=== PATIENT | female | born 1995 | race Caucasian/White ===

== ENCOUNTER 2022-10-21 21:49 | Observation (INO) | payer OTHER ==
[2022-10-21] MEDS ORDERED: TYLENOL EXTRA STRENGTH 500 MG PO ONE (23:32)
[2022-10-21] MEDS ORDERED: TYLENOL EXTRA STRENGTH 500 MG ONE (23:34)
[2022-10-22 00:17] VITALS: BP 137/65; PULSE 83
[2022-10-22 00:29] VITALS: O2SAT 99
== END 2022-10-22 | disposition home or self-care (01) ==
LOC: OB 21:49 → UNDOADMOB 21:49 → UNDODISOB 10-22
PROVIDERS: ADMIT Obstetrics & Gynecology; ATTEND Obstetrics & Gynecology
DX: Z34.83 Encounter for supervision of other normal pregnancy, third trimester (principal); Z3A.31 31 weeks gestation of pregnancy
CPT/HCPCS: G0378; A9270-GY

== ENCOUNTER 2022-12-14 05:00 | Inpatient (IN) | payer OTHER ==
[~2022-12-14 05:00] MED LIST: Lactated Ringers 1,000 ML IV SCH
[2022-12-14 06:13] LABS: Hematocrit 33.2 % (35-47); Hemoglobin 11.2 g/dL (12.0-16.0); Mean Cell Volume 86.5 fL (78-100); Mean Corpuscular Hemoglobin 29.2 pg (26-32); Mean Corpuscular Hgb Concent. 33.7 g/dL (32-36); Mean Platelet Volume 10.2 fL (7.5-11.0); Platelet Count 153 x10^3/uL (150-450); Red Blood Count 3.84 x10^6/uL (4.1-5.4); White Blood Count 6.1 x10^3/uL (4.0-10.5)
[2022-12-14 06:30] LABS: INR 0.89 (0.8-3.0); PROTIME 9.8 SECONDS (9.4-12.5); PTT 26.3 SECONDS (25.1-36.5)
[2022-12-14 06:32] LABS: ADD URINE CULTURE? NO (NO); Appearance Clear (Clear); Bacteria None Seen /HPF (None Seen); Bilirubin Negative (Negative); Blood Negative (Negative); Epithelial Cells None Seen /HPF (None Seen); Glucose, Urine Negative (Negative); Hyaline Casts NONE SEEN /LPF (0-2); Ketones Negative (Negative); Leukocyte Esterase Negative (Negative); Nitrite Negative (Negative); Protein,Urine Dip Negative (Negative); RBC 0-2 /HPF (0-5); Specific Gravity 1.015 (1.005-1.030); WBC 0-2 /HPF (0-5)
[2022-12-14 06:34] LABS: Amphetamine,Urine NEGATIVE (NEGATIVE); Barbiturate,Urine NEGATIVE (NEGATIVE); Benzodiazepine,Urine NEGATIVE (NEGATIVE); Cocaine,Urine NEGATIVE (NEGATIVE); Methadone,Urine NEGATIVE (NEGATIVE); Opiate,Urine NEGATIVE (NEGATIVE); PCP,Urine NEGATIVE (NEGATIVE); THC,Urine NEGATIVE (NEGATIVE)
[2022-12-14 06:36] LABS: ABO TYPING A; RH TYPING POSITIVE
[2022-12-14 06:53] LABS: Antibody Screen NEGATIVE (NEGATIVE)
[2022-12-14] MEDS ORDERED: Reglan 10 MG/2 ML IV SCH (07:00)
[2022-12-14] MEDS ORDERED: Lactated Ringers 1,000 ML IV SCH (07:00)
[2022-12-14] MEDS ORDERED: SOD CITRATE-CITRIC ACID SOLN PO SCH (07:00)
[2022-12-14] MEDS ORDERED: CLINDAMYCIN-D5W 900 MG/50 ML*** 900 MG/50 ML BAG IV SCH (07:00)
[2022-12-14] MEDS ORDERED: Pepcid 20 MG VIAL IV SCH (07:00)
[2022-12-14] MEDS ORDERED: Pitocin 10 UNITS/ML ONE ×2 (08:00→09:05)
[2022-12-14] MEDS ORDERED: Astramorph-Pf 5 MG/10 ML ONE (08:01)
[2022-12-14] MEDS ORDERED: PHENYLEPHRINE HCL ONE (08:49)
[2022-12-14] MEDS ORDERED: Versed 2 MG/2 ML Injection ONE (08:51)
[2022-12-14] MEDS ORDERED: Marcaine 0.5%/Epinephrine 10 ML ONE (09:13)
[2022-12-14] MEDS ORDERED: HOLD NARCOTIC ANALGESICS AND SEDATIVES X24 HR MC PRN (10:00)
[2022-12-14] MEDS ORDERED: Zofran 4 MG/2 ML VIAL IV PRN (10:00)
[2022-12-14] MEDS ORDERED: Mylicon 80MG PO PRN (10:00)
[2022-12-14] MEDS ORDERED: MORPHINE SULFATE 2 MG INJ IV PRN (10:00)
[2022-12-14] MEDS ORDERED: CLARITIN 10 MG PO PRN (10:00)
[2022-12-14] MEDS ORDERED: LANSINOH 40 GM TOP PRN (10:00)
[2022-12-14] MEDS ORDERED: Narcan 0.4 MG/ML IV PRN (10:00)
[2022-12-14] MEDS ORDERED: Sodium Chloride 0.9% 10 ML FLUSH Syringe IJ PRN (10:00)
[2022-12-14] MEDS ORDERED: Dextrose 5%-Lr IV Solution 1000 ML 1,000 ML IV SCH (10:00)
[2022-12-14] MEDS ORDERED: PERCOCET TABLET 5/325MG PO PRN (10:00)
[2022-12-14] MEDS ORDERED: Nubain 10 MG/ML IV PRN (10:00)
[2022-12-14] MEDS ORDERED: BENADRYL 50 MG/ML IV PRN (10:00)
[2022-12-14] MEDS ORDERED: TYLENOL EXTRA STRENGTH 500 MG PO PRN (10:00)
[2022-12-14] MEDS ORDERED: DEMEROL 50 MG ONE (10:12)
[2022-12-14] MEDS ORDERED: Zofran 4 MG/2 ML VIAL ONE (10:24)
[2022-12-14 14:42] LABS: Appearance Clear (Clear); Bacteria None Seen /HPF (None Seen); Bilirubin Negative (Negative); Blood Negative (Negative); Epithelial Cells Rare /HPF (None Seen); Glucose, Urine Negative (Negative); Hyaline Casts NONE SEEN /LPF (0-2); Ketones 15 (Negative); Leukocyte Esterase Negative (Negative); Nitrite Negative (Negative); Protein,Urine Dip Negative (Negative); RBC 0-2 /HPF (0-5); Specific Gravity 1.025 (1.005-1.030); WBC 0-2 /HPF (0-5)
[2022-12-14] MEDS ORDERED: Adacel Vial IM ONE (16:00)
[2022-12-14] MEDS: CLINDAMYCIN-D5W 900 MG/50 ML*** 900 MG/50 ML BAG IV SCH (18:17)
[2022-12-14] MEDS: Docusate Sodium 100 MG PO SCH (22:23)
[2022-12-15] MEDS: CLINDAMYCIN-D5W 900 MG/50 ML*** 900 MG/50 ML BAG IV SCH (02:12)
[2022-12-15 06:20] LABS: Absolute Neutrophil Ct (ANC) 7.08 x10^3/uL (1.4-6.9); BASOPHIL % 0.3 % (0.0-0.4); Basophil (Absolute #) 0.03 x10^3/uL (0-0.4); Eosinophil % 0.5 % (0.00-5.0); Eosinophil (Absolute #) 0.04 x10^3/uL (0-0.5); Hemoglobin 11.1 g/dL (12.0-16.0); IMMATURE GRAN # 0.03 x10^3u/L (0.00-0.03); IMMATURE GRAN % 0.3 % (0.00-0.4); Lymphocyte (Absolute #) 0.96 x10^3/uL (1.0-4.6); Mean Cell Volume 87.5 fL (78-100); Mean Corpuscular Hemoglobin 29.4 pg (26-32); Mean Corpuscular Hgb Concent. 33.6 g/dL (32-36); Mean Platelet Volume 9.9 fL (7.5-11.0); Monocytes % 6.9 % (0.0-12.0); Platelet Count 156 x10^3/uL (150-450); Red Blood Count 3.77 x10^6/uL (4.1-5.4); Red Cell Distribution Width 15.4 % (11.5-14.0); White Blood Count 8.7 x10^3/uL (4.0-10.5)
[2022-12-15] MEDS ORDERED: ENOXAPARIN SODIUM SQ ONE (09:00)
[2022-12-15 09:11] LABS: HBsAg Screen Negative (Negative)
[2022-12-15] MEDS: Docusate Sodium 100 MG PO SCH (09:18)
[2022-12-15] MEDS ORDERED: MOTRIN 400 MG PO PRN (10:00)
[2022-12-15] MEDS ORDERED: ZOLOFT 50 MG TABLET PO SCH (10:00)
[2022-12-15] MEDS ORDERED: FERREX 150 PO SCH (10:00)
[2022-12-15] MEDS ORDERED: DEMEROL 50 MG IV PRN (10:00)
[2022-12-15] MEDS ORDERED: THERAGRAN MULTIVITAMIN PO SCH (10:00)
[2022-12-15] MEDS: NORCO 5/325 MG PO PRN ×2 (13:21→17:23)
--- NOTE | 2022-12-15 16:42 | PCM.DS ---
Discharge Summary Date of Admission: 12/14/22 05:00 Admitting Physician: TONY SANTO DO Consults: Consults on Case 12/14/22 05:00 Notify Physician OF ADMISSION 12/14/22 08:00 Notify Anesthesia Provider ROUTINE 12/14/22 10:00 Notify Anesthesia Provider PRN 12/14/22 10:28 Navigation ONCE Primary Care Provider: SYMONE MATHEW Allergies Allergies Penicillins Allergy (Severe, Verified 12/14/22 06:26) Tightness of Throat Hospital Summary - Hospital Course Hospital Course: pt admitted o december 14 for scheduled repeat csection and underwent procedure without complication and delivered live baby girl. pt did well postoperatively was able to ambulate and tolerate diet. pts baby was transferred to [place] today therefore pt desires to be discharged. pt had stable hgb level at 11 and was given rx for norco for pain management. all questions answered to her satisfaction. advised to fu next saturday for incision check. - Vitals & Intake/Output Vital Signs: Vital Signs Temperature 98.4 F 12/15/22 15:00 Pulse Rate 108 H 12/15/22 15:00 Respiratory Rate 18 12/15/22 15:00 Blood Pressure 121/56 12/15/22 15:00 O2 Sat by Pulse Oximetry 98 12/15/22 15:00 Intake & Output: Intake & Output 12/13/22 12/14/22 12/15/22 12/16/22 11:59 11:59 11:59 11:59 Intake Total 1620 Output Total 2350 Balance -730 Weight 129.274 kg - Lab Result Diagrams: 12/15/22 06:05 Lab Results-Last 24 Hrs: Lab Results-Last 24 Hours 12/14/22 12/15/22 Range/Units 06:01 06:05 WBC 8.7 (4.0-10.5) x10^3/uL RBC 3.77 L (4.1-5.4) x10^6/uL Hgb 11.1 L (12.0-16.0) g/dL Hct 33.0 L (35-47) % MCV 87.5 (78-100) fL MCH 29.4 (26-32) pg MCHC 33.6 (32-36) g/dL RDW 15.4 H (11.5-14.0) % Plt Count 156 (150-450) x10^3/uL MPV 9.9 (7.5-11.0) fL Gran % 81.0 H (36.0-66.0) % Immature Gran % (Auto) 0.3 (0.00-0.4) % Nucleat RBC Rel Count 0.0 (0.00-0.1) % Eos # (Auto) 0.04 (0-0.5) x10^3/uL Immature Gran # (Auto) 0.03 (0.00-0.03) x10^3u/L Absolute Lymphs (auto) 0.96 L (1.0-4.6) x10^3/uL Absolute Monos (auto) 0.60 (0.0-1.3) x10^3/uL Absolute Nucleated RBC 0.00 (0.00-0.01) x10^3u/L Lymphocytes % 11.0 L (24.0-44.0) % Monocytes % 6.9 (0.0-12.0) % Eosinophils % 0.5 (0.00-5.0) % Basophils % 0.3 (0.0-0.4) % Absolute Granulocytes 7.08 H (1.4-6.9) x10^3/uL Basophils # 0.03 (0-0.4) x10^3/uL Hep Bs Antigen Negative (Negative) - Procedures and Test Procedures and Tests throughout Hospitalization: Therapy Orders & Screens 12/14/22 09:16 Standby ROUTINE Comment: Diagnosis: TRISTAN Repeat C/S - Discharge Disposition: Home, Self-Care Condition: Stable Prescriptions: New Hydrocodone/Acetaminophen [Hydrocodone-Acetamin 5-325 mg] 1 tab PO Q6HPRN PRN #20 tablet MDD 4 PRN Reason: Pain No Action Sertraline HCl 50 mg [Zoloft 50 mg Tablet] 50 mg PO DAILY Vit No.179/Iron/Folic [ Tablet] 1 tab PO HS Follow up with: SYMONE MATHEW [Primary Care Provider] - TONY SANTO DO [ACTIVE STAFF] - 1 Week (should fu in office next saturday)
--- NOTE | 2022-12-15 16:43 | PCM.NOTE ---
Date and Time: 12/15/22 1642 Subjective Assessment: pod 1 sp csection pt resting in bed and doing well able to ambulate and tolerate diet vss afebrile abd; soft uterus firm lochia; mild a/p sp csection pod 1 doing well desires to be discharged today due to baby being transferred OBJECTIVE DATA Vital Signs: Vital Signs - 24 hr Temp Pulse Resp BP Pulse Ox 12/15/22 15:00 98.4 F 108 H 18 121/56 98 12/15/22 10:00 97 12/15/22 09:32 97.9 F 93 H 16 117/66 97 12/15/22 09:00 97 12/15/22 08:00 98 12/15/22 07:00 100 12/15/22 06:00 98.3 F 93 H 18 117/63 100 12/15/22 05:00 100 12/15/22 04:00 100 12/15/22 03:00 100 12/15/22 00:08 98.4 F 91 H 16 117/63 98 12/15/22 00:00 98 12/14/22 23:30 98 12/14/22 22:00 98 12/14/22 21:00 98 12/14/22 20:00 98.6 F 96 H 18 110/53 99 12/14/22 18:54 97 12/14/22 18:00 99 12/14/22 17:00 100 Pain Assessment - Last Documented Pain Intensity [Bilateral 1 Lower Distal] Pain Intensity 7 Pain Scale Used 0-10 Pain Scale Intake and Output: Intake & Output 12/13/22 12/14/22 12/15/22 12/16/22 11:59 11:59 11:59 11:59 Intake Total 1620 Output Total 2350 Balance -730 Weight 129.274 kg Lab Results: Lab Results-Last 24 Hours 12/14/22 12/15/22 Range/Units 06:01 06:05 WBC 8.7 (4.0-10.5) x10^3/uL RBC 3.77 L (4.1-5.4) x10^6/uL Hgb 11.1 L (12.0-16.0) g/dL Hct 33.0 L (35-47) % MCV 87.5 (78-100) fL MCH 29.4 (26-32) pg MCHC 33.6 (32-36) g/dL RDW 15.4 H (11.5-14.0) % Plt Count 156 (150-450) x10^3/uL MPV 9.9 (7.5-11.0) fL Gran % 81.0 H (36.0-66.0) % Immature Gran % (Auto) 0.3 (0.00-0.4) % Nucleat RBC Rel Count 0.0 (0.00-0.1) % Eos # (Auto) 0.04 (0-0.5) x10^3/uL Immature Gran # (Auto) 0.03 (0.00-0.03) x10^3u/L Absolute Lymphs (auto) 0.96 L (1.0-4.6) x10^3/uL Absolute Monos (auto) 0.60 (0.0-1.3) x10^3/uL Absolute Nucleated RBC 0.00 (0.00-0.01) x10^3u/L Lymphocytes % 11.0 L (24.0-44.0) % Monocytes % 6.9 (0.0-12.0) % Eosinophils % 0.5 (0.00-5.0) % Basophils % 0.3 (0.0-0.4) % Absolute Granulocytes 7.08 H (1.4-6.9) x10^3/uL Basophils # 0.03 (0-0.4) x10^3/uL Hep Bs Antigen Negative (Negative) Assessment/Plan (1) S/P repeat low transverse Current Visit: Yes Status: Acute Code(s): Z98.891 - HISTORY OF UTERINE SCAR FROM PREVIOUS SURGERY
[2022-12-15 18:58] VITALS: BP 124/78; PULSE 119; O2SAT 96
--- NOTE | 2022-12-17 11:29 | OP ---
SURGERY DATE/TIME: 12/14/2022 0821 PREOPERATIVE DIAGNOSIS: Intrauterine at 39 weeks gestation with previous section for repeat section. POSTOPERATIVE DIAGNOSIS: Intrauterine at 39 weeks gestation with previous section for repeat section with lower uterine segment with anterior placenta. PROCEDURES: Repeat section, low flap transverse uterine incision, Pfannenstiel skin incision. SURGEON: Clint Roa D.O. CLAM SHUCKING MACHINE TENDER: Li Thomason and Brittany Stewart, surgical nurse. ANESTHESIA: Spinal. ESTIMATED BLOOD LOSS: 554 cc. COMPLICATIONS: None. INDICATIONS: The risks, benefits, indications and alternatives of the procedure were reviewed with the patient prior to procedure. The patient understood the risk of infection, bleeding, bowel injury, bladder injury, ureteral perforation, pelvic infection, thromboembolic disorder associated with this procedure and desires to have this surgery as a possible means to alleviate her current medical condition. DESCRIPTION OF PROCEDURE AND FINDINGS: At this point the patient is taken to the operating room where her spinal anesthesia was found to adequate. She was then prepared and draped in normal sterile fashion in the dorsal supine position with a leftward tilt. A Pfannenstiel skin incision is made with a scalpel and carried through to the underlying layer of the fascia with a Bovie. The fascia was then incised in the midline and the incision extended laterally with Mitchell scissors. The superior aspect of the fascial incision were then grasped Davin clamps elevated and the underlying rectus muscles dissected off bluntly. Attention is then turned to the inferior aspect of this incision which in similar fashion was grasped, tented up with Davin clamps and the rectus muscles dissected off bluntly. The rectus muscles were then in the midline and the peritoneum identified, tented up and entered sharply with Metzenbaum scissors. The peritoneal incision was then extended superiorly and inferiorly with good visualization of the bladder. The bladder blade was then inserted and the vesicouterine peritoneum identified, grasped with pickups and entered sharply with Metzenbaum scissors. This incision was then extended laterally and bladder flap created digitally. The bladder blade was then reinserted in the lower uterine segment and excised in transverse fashion with a scalpel. The uterine incision was then extended laterally with bandage scissors. The bladder blade was then removed and the placenta was noted to be anteriorly however entrance through the placenta was obtained and the infants head was delivered atraumatically. The nose and mouth were suctioned with DeLee suction and the cord clamped and cut. The was then handed off to the awaiting nurses. The lower uterine segment appeared to be thin at the time of entry. At this point the placenta was then removed and the uterus exteriorized and cleared of all clots and debris. The uterine incision was repaired with 1-0 chromic in running locked fashion. A second layer of the same suture was used to obtain excellent hemostasis. At this point the uterus is then returned to the abdomen. The gutters were cleared of all clots and the peritoneal muscles were closed in interrupted fashion using 2-0 chromic suture. The fascia was re-approximated with 0 Vicryl in running fashion. The subcutaneous layer was closed with 3-0 Vicryl suture. The skin was closed with absorbable halima called INSORB. The patient tolerated the procedure well. Sponge, lap, needle and instrument counts were correct x2. The patient was then taken to the recovery room in stable condition. The patient delivered a live baby girl at 0957 without complication.
== END 2022-12-15 19:06 | disposition home or self-care (01) | DRG 788 ==
LOC: OBSVTOIN 05:00 → OB 05:00
PROVIDERS: ADMIT Obstetrics & Gynecology; ATTEND Obstetrics & Gynecology
PROC: 10D00Z1 Extraction of Products of Conception, Low, Open Approach (ICD-10-PCS; principal; 2022-12-14)
DX: O34.211 Maternal care for low transverse scar from previous cesarean delivery (principal); Z3A.39 39 weeks gestation of pregnancy; Z37.0 Single live birth; Z20.828 Contact with and (suspected) exposure to other viral communicable diseases
CPT/HCPCS: 36415; 59426; 64488; 76937; 80307; 81001; 81002; 85025; 85027; 85610; 85730; 86850; 86900; 86901; 87086; 87340; 90715; 94799; 96372; J1200; J1650; J2175; J2250; J2274; J2370; J2405; J2590; L0625; A9270-GY

== ENCOUNTER 2023-05-14 18:37 | Emergency (ER) | payer OTHER ==
--- NOTE | 2023-05-14 19:04 | ERPHSYRPT ---
- History of Present Illness Time Seen by Provider: 05/14/23 18:58 Source: patient Exam Limitations: no limitations Physician History: Patient 27-year-old female presents to our ED for evaluation of pelvic pain. Patient states that she has been experiencing pelvic pain since January 31 when her IUD was placed. Patient made her CURATOR OF EDUCATION doctor aware and is currently scheduled to follow-up with him regarding this discomfort that has been ongoing since January 31. Patient states now however she feels a pressure sensation in addition to the pain that she has been experiencing since the IUD was placed. No vaginal discharge. No trauma. No fever. No urinary symptomology. Symptoms are mild to moderate in intensity. No specific worsening improving factors. No associated symptomology otherwise. Patient is currently 5 months . Patient otherwise feels well. She voices no other complaints or concerns at this time. Portions of this note were created with voice recognition technology. There may be grammatical, spelling, punctuation or sound alike errors Timing/Duration: day(s) (2 days) Severity: moderate Modifying Factors: Improves With: nothing Associated Symptoms: denies symptoms Allergies/Adverse Reactions: Penicillins Allergy (Severe, Verified 05/14/23 18:46) Tightness of Throat Home Medications: No Reportable Medications [No Reported Medications] 05/14/23 [History] Travel Risk - Vaccine Status Have you recieved a Covid-19 vaccination: Yes Non Destructive Evaluation Manager: Fifteen Reasons - Review of Systems Constitutional: No Symptoms, No Fever, No Chills Eyes: No Symptoms Ears, Nose, & Throat: No Symptoms Respiratory: No Symptoms, No Cough, No Dyspnea Cardiac: No Symptoms, No Chest Pain, No Edema, No Syncope Abdominal/Gastrointestinal: No Symptoms, No Abdominal Pain, No Nausea, No Vomiting, No Diarrhea Genitourinary Symptoms: No Symptoms, No Dysuria Musculoskeletal: No Symptoms, No Back Pain, No Neck Pain Skin: No Symptoms, No Rash Neurological: No Symptoms, No Dizziness, No Focal Weakness, No Sensory Changes Psychological: No Symptoms Endocrine: No Symptoms Hematologic/Lymphatic: No Symptoms Immunological/Allergic: No Symptoms All Other Systems: Reviewed and Negative - Past Medical History Pertinent Past Medical History: Yes Neurological History: No Pertinent History ENT History: No Pertinent History Cardiac History: No Pertinent History Respiratory History: No Pertinent History Endocrine Medical History: No Pertinent History Musculoskeletal History: Fractures GI Medical History: No Pertinent History History: No Pertinent History Psycho-Social History: Anxiety, Depression Female Reproductive Disorders: No Pertinent History - Past Surgical History Past Surgical History: Yes Neuro Surgical History: No Pertinent History Cardiac: No Pertinent History Respiratory: No Pertinent History Gastrointestinal: Cholecystectomy Genitourinary: No Pertinent History Musculoskeletal: No Pertinent History Female Surgical History: Dilation & Curettage, Section Other Surgical History: Primary c/s 2019 - Social History Smoking Status: Never smoker Exposure to second hand smoke: No Drug Use: none - Nursing Vital Signs Nursing Vital Signs: Initial Vital Signs Temperature 98.2 F 05/14/23 18:37 Pulse Rate 102 H 05/14/23 18:37 Respiratory Rate 24 05/14/23 18:37 Blood Pressure 142/89 05/14/23 18:37 O2 Sat by Pulse Oximetry 98 05/14/23 18:37 Pain Scale Pain Intensity 4 - Physical Exam General Appearance: no apparent distress, alert Eye Exam: PERRL/EOMI, eyes nml inspection Ears, Nose, Throat Exam: normal ENT inspection, TMs normal, pharynx normal, moist mucous membranes Neck Exam: normal inspection, non-tender, supple, full range of motion Respiratory Exam: normal breath sounds, lungs clear, airway intact, No respiratory distress Cardiovascular Exam: regular rate/rhythm, normal heart sounds, normal peripheral pulses Gastrointestinal/Abdomen Exam: soft, normal bowel sounds, No tenderness, No mass Pelvic Exam: normal external exam, No adnexal tenderness, No adnexal mass, No cervical motion tenderness, No vaginal bleeding, No vaginal discharge Back Exam: normal inspection, normal range of motion, No CVA tenderness, No vertebral tenderness Extremity Exam: normal inspection, normal range of motion, pelvis stable Neurologic Exam: alert, oriented x 3, cooperative, normal mood/affect, nml cerebellar function, nml station & gait, sensation nml, No motor deficits Skin Exam: normal color, warm, dry, No rash Lymphatic Exam: No adenopathy SpO2 Interpretation: normal SpO2: 98 O2 Delivery: Room Air - Course Nursing assessment & vital signs reviewed: Yes Ordered Tests: Active Orders 24 hr Category Date Time Status IV Insertion STAT Care 05/14/23 18:55 Active CBC W DIFF Stat Lab 05/14/23 19:25 Completed CMP Stat Lab 05/14/23 19:25 Completed HCG QUALITATIVE, URINE Stat Lab 05/14/23 19:25 Completed UA W/RFX UR CULTURE Stat Lab 05/14/23 19:25 Completed Lab/Rad Data: Laboratory Result Diagrams 05/14/23 19:25 05/14/23 19:25 Laboratory Results 05/14/23 05/14/23 05/14/23 Range/Units 20:00 19:25 19:25 WBC (4.0-10.5) x10^3/uL RBC (4.1-5.4) x10^6/uL Hgb (12.0-16.0) g/dL Hct (35-47) % MCV (78-100) fL MCH (26-32) pg MCHC (32-36) g/dL RDW (11.5-14.0) % Plt Count (150-450) x10^3/uL MPV (7.5-11.0) fL Gran % (36.0-66.0) % Immature Gran % (Auto) (0.00-0.4) % Nucleat RBC Rel Count (0.00-0.1) % Eos # (Auto) (0-0.5) x10^3/uL Immature Gran # (Auto) (0.00-0.03) x10^3u/L Absolute Lymphs (auto) (1.0-4.6) x10^3/uL Absolute Monos (auto) (0.0-1.3) x10^3/uL Absolute Nucleated RBC (0.00-0.01) x10^3u/L Lymphocytes % (24.0-44.0) % Monocytes % (0.0-12.0) % Eosinophils % (0.00-5.0) % Basophils % (0.0-0.4) % Absolute Granulocytes (1.4-6.9) x10^3/uL Basophils # (0-0.4) x10^3/uL Sodium (137-145) mmol/L Potassium (3.5-5.1) mmol/L Chloride (98-107) mmol/L Carbon Dioxide (22-30) mmol/L Anion Gap (5-15) MEQ/L BUN (7-17) mg/dL Creatinine (0.52-1.04) mg/dL Estimated GFR ML/MIN Glucose (74-106) mg/dL Calcium (8.4-10.2) mg/dL Total Bilirubin (0.2-1.3) mg/dL AST (14-36) U/L ALT (0-35) U/L Alkaline Phosphatase (38-126) U/L Serum Total Protein (6.3-8.2) g/dL Albumin (3.5-5.0) g/dL Urine Color Yellow (Yellow) Urine Appearance Clear (Clear) Urine pH 7.5 (4.6-8.0) Ur Specific [place] 1.015 (1.005-1.030) Urine Protein Negative (Negative) Urine Glucose (UA) Negative (Negative) mg/dL Urine Ketones Negative (Negative) Urine Blood Negative (Negative) Urine Nitrite Negative (Negative) Urine Bilirubin Negative (Negative) Urine Urobilinogen 0.2 (0.2) mg/dL Ur Leukocyte Esterase Negative (Negative) U Hyaline Cast (Auto) NONE SEEN (0-2) /LPF Urine Microscopic RBC 0-2 (0-5) /HPF Urine Microscopic WBC 0-2 (0-5) /HPF Ur Epithelial Cells None Seen (None Seen) /HPF Urine Bacteria None Seen (None Seen) /HPF Urine Culture Reflexed NO (NO) Urine HCG, Qual NEGATIVE (NEGATIVE) Vaginal [place] NOT DETECTED (NEGATIVE) Alice species NOT DETECTED (NEGATIVE) Chlamydia DNA Probe (NEGATIVE) N.gonorrhoeae DNA Probe (NEGATIVE) T. vaginalis (PCR) NOT DETECTED (NEGATIVE) Bact Vaginosis (PCR) NEGATIVE (NEGATIVE) 05/14/23 05/14/23 05/14/23 Range/Units 19:25 19:25 18:37 WBC 6.3 (4.0-10.5) x10^3/uL RBC 4.51 (4.1-5.4) x10^6/uL Hgb 12.4 (12.0-16.0) g/dL Hct 37.3 (35-47) % MCV 82.7 (78-100) fL MCH 27.5 (26-32) pg MCHC 33.2 (32-36) g/dL RDW 13.5 (11.5-14.0) % Plt Count 206 (150-450) x10^3/uL MPV 9.1 (7.5-11.0) fL Gran % 68.3 H (36.0-66.0) % Immature Gran % (Auto) 0.3 (0.00-0.4) % Nucleat RBC Rel Count 0.0 (0.00-0.1) % Eos # (Auto) 0.09 (0-0.5) x10^3/uL Immature Gran # (Auto) 0.02 (0.00-0.03) x10^3u/L Absolute Lymphs (auto) 1.51 (1.0-4.6) x10^3/uL Absolute Monos (auto) 0.34 (0.0-1.3) x10^3/uL Absolute Nucleated RBC 0.00 (0.00-0.01) x10^3u/L Lymphocytes % 24.1 (24.0-44.0) % Monocytes % 5.4 (0.0-12.0) % Eosinophils % 1.4 (0.00-5.0) % Basophils % 0.5 (0.0-0.4) % Absolute Granulocytes 4.28 (1.4-6.9) x10^3/uL Basophils # 0.03 (0-0.4) x10^3/uL Sodium 140 (137-145) mmol/L Potassium 3.6 (3.5-5.1) mmol/L Chloride 105 (98-107) mmol/L Carbon Dioxide 25 (22-30) mmol/L Anion Gap 13.6 (5-15) MEQ/L BUN 8 (7-17) mg/dL Creatinine 0.56 (0.52-1.04) mg/dL Estimated GFR > 60.0 ML/MIN Glucose 97 (74-106) mg/dL Calcium 9.1 (8.4-10.2) mg/dL Total Bilirubin 0.40 (0.2-1.3) mg/dL AST 22 (14-36) U/L ALT 18 (0-35) U/L Alkaline Phosphatase 57 (38-126) U/L Serum Total Protein 7.5 (6.3-8.2) g/dL Albumin 4.3 (3.5-5.0) g/dL Urine Color (Yellow) Urine Appearance (Clear) Urine pH (4.6-8.0) Ur Specific [place] (1.005-1.030) Urine Protein (Negative) Urine Glucose (UA) (Negative) mg/dL Urine Ketones (Negative) Urine Blood (Negative) Urine Nitrite (Negative) Urine Bilirubin (Negative) Urine Urobilinogen (0.2) mg/dL Ur Leukocyte Esterase (Negative) U Hyaline Cast (Auto) (0-2) /LPF Urine Microscopic RBC (0-5) /HPF Urine Microscopic WBC (0-5) /HPF Ur Epithelial Cells (None Seen) /HPF Urine Bacteria (None Seen) /HPF Urine Culture Reflexed (NO) Urine HCG, Qual (NEGATIVE) Vaginal [place] (NEGATIVE) Alice species (NEGATIVE) Chlamydia DNA Probe NOT DETECTED (NEGATIVE) N.gonorrhoeae DNA Probe NOT DETECTED (NEGATIVE) T. vaginalis (PCR) (NEGATIVE) Bact Vaginosis (PCR) (NEGATIVE) - Progress Progress: improved Progress Note: Patient is a 27-year-old female presents to our ED for evaluation of pelvic pressure. Physical exam essentially nonremarkable. Pelvic exam was negative. CBC CMP ordered. No significant findings observed. GC chlamydia negative. hCG negative. Urinalysis negative. Vaginal panel negative. Wet prep negative as well. Ultrasound is currently not in-house. I spoke to Dr. Roa patient's CURATOR OF EDUCATION physician who agreed that there is no need to call in ultrasound at this time. Dr. Roa advised that patient call him in the morning for follow-up appointment. Patient states that she has been having some pelvic discomfort since the placement of her IUD on January 31. Patient believes that her current symptomology is related to her IUD but as of now no evidence that this is the case. Complexity of problems addressed is moderate acute complicated No critical care time Complex of data reviewed and analyzed is extensive. Labs ordered reviewed and analyzed. Clinical correlation made between findings and history and physical examination. Management discussed with patient's CURATOR OF EDUCATION physician who agrees with plan of care/disposition. Risk complication and or risk of morbidity/mortality of patient management is low. No prescriptions prescribed. Vital stable. Discharge diagnosis is pelvic pain not otherwise specified. Time spent to discharge patient is approximately 15 minutes. Plan of care establi shed for shared decision making. No social determinants of health present to impede follow-up. Patient agrees to call her CURATOR OF EDUCATION physician in the morning for follow-up appointment. She voices no other complaints concerns at this time. Portions of this note were created with voice recognition technology. There may be grammatical, spelling, punctuation or sound alike errors 05/14/23 21:20 Discussed with DrStephany: Estefania Counseled pt/family regarding: lab results, diagnosis, need for follow-up - Departure Departure Disposition: Home Clinical Impression: Pelvic pain Condition: Stable Critical Care Time: No Referrals: HERNAN WHYTE MD [Primary Care Provider] - Follow up/PCP as directed Additional Instructions: Discharge/Care Plan ROCAEL SHORT was seen on 05/14/23 in the Emergency Room. The patient was counseled regarding Diagnosis,Lab results, Imaging studies, need for follow up and when to return to the Emergency Room. Prescriptions given: Discharge Note I have spoken with the patient and/or caregivers. I have explained the patient's condition, diagnosis and treatment plan based on the information available to me at this time. I have answered the patient's and/or caregiver's questions and addressed any concerns. The patient and/or caregivers have as good understanding of the patient's diagnosis, condition and treatment plan as can be expected at this point. The vital signs have been stable. The patient's condition is stable and appropriate for discharge from the emergency department. The patient will pursue further outpatient evaluation with the primary care physician or other designated or consulting physician as outlined in the discharge instructions. The patient and/or caregivers are agreeable to this plan of care and follow-up instructions have been explained in detail. The patient and/or caregivers have received these instruction. The patient/and or caregivers are aware that any significant change in condition or worsening of symptoms should prompt an immediate return to this or the closest emergency department or call 911.
[2023-05-14 19:15] VITALS: RESP 24; TEMP 98.2
[2023-05-14 19:33] LABS: Absolute Neutrophil Ct (ANC) 4.28 x10^3/uL (1.4-6.9); BASOPHIL % 0.5 % (0.0-0.4); Basophil (Absolute #) 0.03 x10^3/uL (0-0.4); Eosinophil % 1.4 % (0.00-5.0); Eosinophil (Absolute #) 0.09 x10^3/uL (0-0.5); Hematocrit 37.3 % (35-47); Hemoglobin 12.4 g/dL (12.0-16.0); IMMATURE GRAN # 0.02 x10^3u/L (0.00-0.03); IMMATURE GRAN % 0.3 % (0.00-0.4); Lymphocyte (Absolute #) 1.51 x10^3/uL (1.0-4.6); Lymphocytes % 24.1 % (24.0-44.0); Mean Cell Volume 82.7 fL (78-100); Mean Corpuscular Hemoglobin 27.5 pg (26-32); Mean Corpuscular Hgb Concent. 33.2 g/dL (32-36); Mean Platelet Volume 9.1 fL (7.5-11.0); Monocyte (Absolute #) 0.34 x10^3/uL (0.0-1.3); Monocytes % 5.4 % (0.0-12.0); Neutrophil % 68.3 % (36.0-66.0); Platelet Count 206 x10^3/uL (150-450); Red Blood Count 4.51 x10^6/uL (4.1-5.4); Red Cell Distribution Width 13.5 % (11.5-14.0); White Blood Count 6.3 x10^3/uL (4.0-10.5)
[2023-05-14 19:39] LABS: HCG URINE TEST NEGATIVE (NEGATIVE)
[2023-05-14 19:43] LABS: Appearance Clear (Clear); Bacteria None Seen /HPF (None Seen); Bilirubin Negative (Negative); Blood Negative (Negative); Epithelial Cells None Seen /HPF (None Seen); Glucose, Urine Negative (Negative); Hyaline Casts NONE SEEN /LPF (0-2); Ketones Negative (Negative); Leukocyte Esterase Negative (Negative); Nitrite Negative (Negative); Ph 7.5 (4.6-8.0); Protein,Urine Dip Negative (Negative); RBC 0-2 /HPF (0-5); Specific Gravity 1.015 (1.005-1.030); Urobilinogen 0.2 mg/dL (0.2); WBC 0-2 /HPF (0-5)
[2023-05-14 19:45] LABS: ALBUMIN 4.3 g/dL (3.5-5.0); ALKALINE PHOSPHATASE 57 U/L (38-126); ANION GAP 13.6 MEQ/L (5-15); BLOOD UREA NITROGEN 8 mg/dL (7-17); CHLORIDE 105 mmol/L (98-107); Calcium 9.1 mg/dL (8.4-10.2); Carbon Dioxide 25 mmol/L (22-30); Creatinine 1 0.56 mg/dL (0.52-1.04); EST GLOMERULAR FILTRATION RATE > 60.0 ML/MIN; Glucose 97 mg/dL (74-106); Potassium 3.6 mmol/L (3.5-5.1); SGOT/AST 22 U/L (14-36); SGPT/ALT 18 U/L (0-35); SODIUM 140 mmol/L (137-145); Total Protein 7.5 g/dL (6.3-8.2)
[2023-05-14 19:46] LABS: ADD URINE CULTURE? NO (NO)
[2023-05-14 20:34] LABS: Candida Group NOT DETECTED (NEGATIVE)
[2023-05-14 21:02] VITALS: BP 133/84; PULSE 92
[2023-05-14 21:04] LABS: CHLAMYDIA DNA NOT DETECTED (NEGATIVE); GC DNA Probe NOT DETECTED (NEGATIVE)
[2023-05-14 21:19] VITALS: O2SAT 98
== END 2023-05-14 21:30 | disposition home or self-care (01) ==
LOC: ED 18:37
DX: R10.2 Pelvic and perineal pain (principal)
CPT/HCPCS: 36000; 36415; 80053; 81001; 81025; 85025; 87481; 87491; 87591; 87661; 87801; 99283

== ENCOUNTER 2024-06-10 17:41 | Emergency (ER) | payer OTHER ==
--- NOTE | 2024-06-10 17:45 | ERPHSYRPT ---
- History of Present Illness Source: patient Exam Limitations: no limitations Hx Tetanus, Diphtheria Vaccination/Date Given: Yes Hx Influenza Vaccination/Date Given: No Hx Pneumococcal Vaccination/Date Given: No <JIM MCELROY - Last Filed: 06/10/24 17:45> - History of Present Illness Method of Injury: fell, twisted Occurred: just prior to arrival Quality: constant Severity of Pain-Max: moderate Severity of Pain-Current: mild Lower Extremities Pain: knee: right Modifying Factors: Improves With: movement (Bearing) <RICK PETERSEN - Last Filed: 06/10/24 20:19> - History of Present Illness Time Seen by Provider: 06/10/24 17:45 Physician History: 28-year-old female presents to emergency department for evaluation of pain to the right knee. Patient states she was at home in her yard when she stepped into a hole and fell over. Injury occurred today just prior to arrival. Patient describes pain at the anterior aspect of her right knee. Pain reproduced with palpation. Pain also worse with ambulation/weightbearing. No other injuries reported. No BHT or LOC. No neck pain. Cervical spine cleared clinically. Pain described as an ache that is localized however patient states pain is minimal and she declined pain medication. Patient reports that she felt a click sensation at the time of the injury. No other complaints voiced. Portions of this note were created with voice recognition technology. There may be grammatical, spelling, punctuation or sound alike errors (RICK PETERSEN) Allergies/Adverse Reactions: Penicillins Allergy (Severe, Verified 06/10/24 18:32) Tightness of Throat Home Medications: No Reportable Medications [No Reported Medications] 05/14/23 [History] - Review of Systems Constitutional: No Symptoms, No Fever, No Chills Eyes: No Symptoms Ears, Nose, & Throat: No Symptoms Respiratory: No Symptoms, No Cough, No Dyspnea Cardiac: No Symptoms, No Chest Pain, No Edema, No Syncope Abdominal/Gastrointestinal: No Symptoms, No Abdominal Pain, No Nausea, No Vomiting, No Diarrhea Genitourinary Symptoms: No Symptoms, No Dysuria Musculoskeletal: No Symptoms, No Back Pain, No Neck Pain Skin: No Symptoms, No Rash Neurological: No Symptoms, No Dizziness, No Focal Weakness, No Sensory Changes Psychological: No Symptoms Endocrine: No Symptoms Hematologic/Lymphatic: No Symptoms Immunological/Allergic: No Symptoms All Other Systems: Reviewed and Negative <FRANKRICK - Last Filed: 06/10/24 20:19> - Past Medical History Pertinent Past Medical History: Yes Neurological History: No Pertinent History ENT History: No Pertinent History Cardiac History: No Pertinent History Respiratory History: No Pertinent History Endocrine Medical History: No Pertinent History Musculoskeletal History: Fractures GI Medical History: Gallbladder Disease History: No Pertinent History Psycho-Social History: Anxiety, Depression Female Reproductive Disorders: No Pertinent History Other Medical History: IUD - Past Surgical History Past Surgical History: Yes Neuro Surgical History: No Pertinent History Cardiac: No Pertinent History Respiratory: No Pertinent History Gastrointestinal: Cholecystectomy Genitourinary: No Pertinent History Musculoskeletal: No Pertinent History Female Surgical History: Dilation & Curettage, Section Other Surgical History: Primary c/s 2018 and 2022 - Social History Smoking Status: Never smoker Exposure to second hand smoke: Yes Drug Use: none Patient Lives Alone: No <JIM MCELROY - Last Filed: 06/10/24 17:45> - Physical Exam General Appearance: alert Eyes, Ears, Nose, Throat Exam: moist mucous membranes Neck Exam: non-tender, supple Cardiovascular/Respiratory Exam: chest non-tender, regular rate/rhythm, no respiratory distress Gastrointestinal/Abdominal Exam: non-tender Back Exam: normal inspection, No vertebral tenderness Hips Exam: bilateral: non-tender, normal inspection, normal range of motion, no evidence of injury Legs Exam: bilateral leg: non-tender, normal inspection, normal range of motion, no evidence of injury Knees Exam: right knee: pain, soft tissue tenderness (Soft tissue tenderness anterior knee over the patellar tendon. Extensor mechanism intact.), left knee: non-tender, normal inspection, normal range of motion, no evidence of injury Ankle Exam: bilateral ankle: non-tender, normal inspection, normal range of motion, no evidence of injury Foot Exam: bilateral foot: non-tender, normal inspection, normal range of motion, no evidence of injury Neuro/Tendon Exam: normal sensation, normal motor functions Mental Status Exam: alert, oriented x 3, cooperative Skin Exam: normal color, warm, dry SpO2: 96 O2 Delivery: Room Air <RICK PETERSEN - Last Filed: 06/10/24 20:19> - Nursing Vital Signs Nursing Vital Signs: Initial Vital Signs Temperature 97.0 F 06/10/24 18:37 Pulse Rate 95 H 06/10/24 18:37 Respiratory Rate 20 06/10/24 18:37 Blood Pressure 130/90 06/10/24 18:37 O2 Sat by Pulse Oximetry 96 06/10/24 18:37 Pain Scale Pain Intensity 4 - Course Nursing assessment & vital signs reviewed: Yes - Radiology Exams Knee X-ray Interpretation: Interpreted by me (No fracture or dislocation. No acute findings) <RICK PETERSEN - Last Filed: 06/10/24 20:19> Ordered Tests: Active Orders 24 hr Category Date Time Status KNEE (3 VIEWS) Stat Exams 06/10/24 18:31 Taken - Progress Progress: improved Counseled pt/family regarding: diagnosis, need for follow-up, rad results <RICK PETERSEN - Last Filed: 06/10/24 20:19> - Progress Progress Note: 27-year-old female presents to emergency department for evaluation of of anterior knee pain after stepping into a hole. Physical exam reveals a superficial abrasion to the knee. The involved EXTR neurovascular tact distally compartments are soft cap refill less than 2 seconds. Extensor mechanism intact. All knee ligaments are stable. Patient declined pain medication. Patient however received bilateral axillary crutches and an Santos wrap. Patient received a referral to orthopedic clinic for Tuesday 06/12. Patient otherwise feels well. She states he is ready for discharge and voices no other complaints or concerns at this time. Portions of this note were created with voice recognition technology. There may be grammatical, spelling, punctuation or sound alike errors Complexity of problem addressed is moderate acute complicated. No critical care time. Complex of data reviewed and analyzed is moderate. Test ordered test reviewed Dr. Petersen independently reviewed the x-ray of the right knee. Results analyzed and correlated clinically with history and physical exam. Vital stable. Time spent to discharge patient approximately 15 minutes. Plan of care established for shared decision making. No social determinants of health present to impede follow-up. Portions of this note were created with voice recognition technology. There may be grammatical, spelling, punctuation or sound alike errors 06/10/24 20:15 (RICK PETERSEN) <JIM MCELROY - Last Filed: 06/10/24 17:45> - Departure Departure Disposition: Home Critical Care Time: No <RICK PETERSEN - Last Filed: 06/10/24 20:19> - Departure Clinical Impression: Right knee sprain, Fall Condition: Stable Referrals: HERNAN WHYTE MD [Primary Care Provider] - Follow up/PCP as directed Additional Instructions: Discharge/Care Plan ROCAEL SHORT was seen on 06/10/24 in the Emergency Room. The patient was counseled regarding Diagnosis,Lab results, Imaging studies, need for follow up and when to return to the Emergency Room. Prescriptions given: Discharge Note I have spoken with the patient and/or caregivers. I have explained the patient's condition, diagnosis and treatment plan based on the information available to me at this time. I have answered the patient's and/or caregiver's questions and addressed any concerns. The patient and/or caregivers have as good understanding of the patient's diagnosis, condition and treatment plan as can be expected at this point. The vital signs have been stable. The patient's condition is stable and appropriate for discharge from the emergency department. The patient will pursue further outpatient evaluation with the primary care physician or other designated or consulting physician as outlined in the discharge instructions. The patient and/or caregivers are agreeable to this plan of care and follow-up instructions have been explained in detail. The patient and/or caregivers have received these instruction. The patient/and or caregivers are aware that any significant change in condition or worsening of symptoms should prompt an immediate return to this or the closest emergency department or call 911. Outpatient Orders: Ortho Referral Time Frame: 1 Day, Facility: [facility], Location: ORTHO CLINIC
[2024-06-10 18:43] VITALS: TEMP 97
[2024-06-10 19:36] VITALS: BP 123/70; PULSE 86; RESP 18
[2024-06-10 20:15] VITALS: O2SAT 96
--- NOTE | 2024-06-11 08:43 | XRAY ---
Indication: Pain following fall. Comparison: None 4 view right knee obtained. No bony, articular, or soft tissue abnormalities.
== END 2024-06-10 20:23 | disposition home or self-care (01) ==
LOC: ED 17:41
DX: S83.91XA Sprain of unspecified site of right knee, initial encounter (principal); W18.42XA Slipping, tripping and stumbling without falling due to stepping into hole or opening, initial encounter; Y92.007 Garden or yard of unspecified non-institutional (private) residence as the place of occurrence of the external cause
CPT/HCPCS: 73562; 99283

== ENCOUNTER 2024-12-17 05:46 | Emergency (ER) | payer OTHER ==
[2024-12-17 06:03] VITALS: PULSE 94; RESP 19; TEMP 98.9; O2SAT 100
[2024-12-17] MEDS ORDERED: MOTRIN 600 MG ONE (06:31)
[2024-12-17] MEDS ORDERED: TYLENOL EXTRA STRENGTH 500 MG ONE (06:32)
[2024-12-17] MEDS: TYLENOL EXTRA STRENGTH 500 MG PO STA (06:33)
[2024-12-17] MEDS: MOTRIN 600 MG PO ONE (06:34)
--- NOTE | 2024-12-17 07:00 | ERPHSYRPT ---
- History of Present Illness Time Seen by Provider: 12/17/24 06:39 Source: patient Exam Limitations: no limitations Patient Subjective Stated Complaint: c/o right ankle injury Triage Nursing Assessment: Patient brought into ED by family with c/o right ank;e injury. patient was at home on couch and stated, "I stood up and didn't know my foot was numb and my ankle cracked a bunch and went sideways, and I fell." pulses normal, skin w/n/d, no bruising present at this time, tender to touch, patient states she cannot move her toes at this time. brought in by wheelchair, vitals wnl, patient doesn't appear to be in any distress at this time. Physician History: 29 years old female presented in the ER after she stood up from sitting position, did not realize her leg/ankle was asleep, twisted, felt a popping sensation on the lateral side of the foot on lateral ankle prior to arrival with inability to have any weightbearing. Patient reports moderate intensity sharp pain with movements of the ankle and weightbearing. No numbness or tingling distally. Has some swelling on the lateral side. No injury anywhere else. Allergies/Adverse Reactions: Penicillins Allergy (Severe, Verified 12/17/24 05:54) Tightness of Throat Hx Tetanus, Diphtheria Vaccination/Date Given: Yes Hx Influenza Vaccination/Date Given: No Hx Pneumococcal Vaccination/Date Given: No Travel Risk - International Travel Have you traveled outside of the country in past 3 weeks: No - Emerging Infectious Disease Are you exhibiting symptoms associated with any current EIDs: No - Review of Systems Constitutional: No Symptoms Ears, Nose, & Throat: No Symptoms Respiratory: No Symptoms Cardiac: No Symptoms Abdominal/Gastrointestinal: No Symptoms Genitourinary Symptoms: No Symptoms Musculoskeletal: Fall, Injury, Joint Pain, Joint Swelling Neurological: No Symptoms Endocrine: No Symptoms - Past Medical History Pertinent Past Medical History: Yes Neurological History: No Pertinent History ENT History: No Pertinent History Cardiac History: No Pertinent History Respiratory History: No Pertinent History Endocrine Medical History: No Pertinent History Musculoskeletal History: Fractures GI Medical History: Gallbladder Disease History: No Pertinent History Psycho-Social History: Anxiety, Depression Female Reproductive Disorders: No Pertinent History Other Medical History: IUD - Past Surgical History Past Surgical History: Yes Neuro Surgical History: No Pertinent History Cardiac: No Pertinent History Respiratory: No Pertinent History Gastrointestinal: Cholecystectomy Genitourinary: No Pertinent History Musculoskeletal: No Pertinent History Female Surgical History: Dilation & Curettage, Section Other Surgical History: Primary c/s 2018 and 2022 - Female History Hx Last Menstrual Period: unknown Hx Now: No - Social History Smoking Status: Never smoker Exposure to second hand smoke: No Drug Use: none - Social Determinants of Health Will the patient participate in the screening: Yes Do you worry about a steady place to live?: No Do you have any problems with any of the following?: No known problems In the past 12 months,have you had to go without utilities?: No Transportation Issues: No Has anyone in your support network made you feel unsafe?: No Have you or anyone in your house had to go w/o enough food: No - Nursing Vital Signs Nursing Vital Signs: Initial Vital Signs Blood Pressure 131/84 12/17/24 05:53 O2 Sat by Pulse Oximetry 100 12/17/24 05:53 Pain Scale Pain Intensity 8 - Physical Exam General Appearance: no apparent distress Neck Exam: normal inspection, full range of motion Cardiovascular/Respiratory Exam: normal breath sounds, regular rate/rhythm Back Exam: normal inspection, normal range of motion Legs Exam: bilateral leg: non-tender, normal inspection, normal range of motion, no evidence of injury Knees Exam: bilateral knee: non-tender, normal inspection, normal range of motion, no evidence of injury Ankle Exam: right ankle: bone tenderness (Lateral malleolus), pain, soft tissue tenderness, swelling, left ankle: non-tender, normal inspection, normal range of motion, no evidence of injury Foot Exam: right foot: bone tenderness (Base of fifth metatarsal), pain, soft tissue tenderness, swelling, left foot: non-tender, normal inspection, normal range of motion, no evidence of injury Neuro/Tendon Exam: normal sensation, normal motor functions Mental Status Exam: alert, oriented x 3, cooperative Skin Exam: normal color SpO2 Interpretation: normal SpO2: 100 O2 Delivery: Room Air Ordered Tests: Active Orders 24 hr Category Date Time Status ANKLE (3 VIEWS) Stat Exams 12/17/24 05:55 Taken FOOT (MINIMUM 3 VIEWS) Stat Exams 12/17/24 05:56 Taken Medication Summary Discontinued Medications Generic Name Dose Route Start Last Admin Trade Name Freq PRN Reason Stop Dose Admin Acetaminophen 1,000 mg 12/17/24 06:30 12/17/24 06:33 Acetaminophen 500 Mg Tablet PO 12/17/24 06:31 1,000 mg STAT STA Administration Acetaminophen Confirm 12/17/24 06:32 Acetaminophen 500 Mg Tablet Administered 12/17/24 06:33 Dose 1,000 mg .ROUTE .STK-MED ONE Ibuprofen 600 mg 12/17/24 06:30 12/17/24 06:34 Ibuprofen 600 Mg Tablet PO 12/17/24 06:31 600 mg STAT ONE Administration Ibuprofen Confirm 12/17/24 06:31 Ibuprofen 600 Mg Tablet Administered 12/17/24 06:32 Dose 600 mg .ROUTE .STK-MED ONE - Progress Progress: improved, pain not gone completely Progress Note: 12/17/24 06:57 29 years old is evaluated in the ER for right foot and ankle pain after she twisted and felt a popping sensation. Has tenderness in the lateral malleolus and base of fifth metatarsal She is given Tylenol and ibuprofen, feeling a little improvement in pain but still having difficulty ambulation. X-rays foot and ankle are negative for acute fracture dislocation reviewed by me, official report is pending. I believe patient has ankle sprain, placed in a long walking boot. Recommended taking Tylenol as needed and outpatient foot and ankle follow-up. Discussed signs symptoms of worsening needing return to ER which she seems understanding. Stable for discharge. Counseled pt/family regarding: diagnosis, need for follow-up, rad results Medical Desision Making - Diagnostic Testing Diagnostic test were ordered, analyzed, and reviewed by me: Yes Radiological Interpretation: Interpreted by me, Reviewed by me - Risk of complications The pt has a mod risk of morbidity or mortality based on: Need for prescription drug management - Departure Departure Disposition: Home Clinical Impression: Ankle sprain Condition: Stable Critical Care Time: No Referrals: HERNAN WHYTE MD [Primary Care Provider] - Follow up/PCP as directed CATINA AUGUSTE DPM [ACTIVE STAFF] - Follow up/PCP as directed Instructions: Foot Sprain (DC), Ankle sprain - ED discharge instructions Additional Instructions: Intermittent ice application. Weightbearing as tolerated. Follow-up with orthopedic/foot and ankle for reevaluation. Return to ER for any worsening. Take Tylenol/ibuprofen as needed Prescriptions: Ibuprofen 600 mg PO Q6HPRN PRN 10 Days #20 tablet PRN Reason: Pain
[2024-12-17 07:25] VITALS: BP 123/71
--- NOTE | 2024-12-17 08:49 | XRAY ---
Indication: Pain following fall. Comparison: None 3 nonweightbearing views right foot demonstrates tiny plantar heel spur. No other bony, articular, or soft tissue abnormalities.
--- NOTE | 2024-12-17 08:49 | XRAY ---
Indication: Pain following fall. Comparison: None 3 view right ankle demonstrates tiny plantar heel spur and mild lateral soft tissue swelling. No other bony, articular, or soft tissue abnormalities.
== END 2024-12-17 07:24 | disposition home or self-care (01) ==
LOC: ED 05:46
DX: S93.401A Sprain of unspecified ligament of right ankle, initial encounter (principal); W18.30XA Fall on same level, unspecified, initial encounter; M79.671 Pain in right foot; Z79.899 Other long term (current) drug therapy
CPT/HCPCS: 73610; 73630; 99283; L4386; A9270-GY